=== PATIENT | male | born 1970 | race Caucasian/White ===

== ENCOUNTER → 2016-09-24 | Outpatient (CLI) | payer OTHER ==
--- NOTE | 2016-09-24 09:44 | REP ---
Right ankle four views : There is no fracture or dislocation. Mineralization and joint spaces are normal. There are no calcifications or foreign bodies. Impression: Negative right ankle . Signed by Lalo Thomson MD 09/24/2016 09:35 A
[2016-09-24 12:38] LABS: BASO % 0.5 % (0.0-1.0); EOS # 0.4 K/mm3 (0.0-0.50); LARGE UNSTAINED CELL # 0.2 K/mm3 (0.0-0.4); LARGE UNSTAINED CELL % 3.2 % (0.0-4.0); LYMPH # 2.1 K/mm3 (1.5-4.5); LYMPH % 33.7 % (24.0-44.0); MEAN CORPUSCULAR HEMOGLOBIN 31.7 pg (27.0-33.0); MEAN CORPUSCULAR HGB CONC 35.4 g/dl (32.0-36.5); MEAN CORPUSCULAR VOLUME 89.6 fl (80.0-96.0); MONO # 0.5 K/mm3 (0.0-0.8); MONO % 9.1 % (0.0-5.0); NEUTROPHILS # 2.8 K/mm3 (1.8-7.7); NEUTROPHILS % 47.5 % (36.0-66.0); PLATELET COUNT, AUTOMATED 186 k/mm3 (150-450); WHITE BLOOD COUNT 5.8 K/mm3 (4.0-10.0)
[2016-09-24 13:23] LABS: ALBUMIN 3.9 GM/DL (3.2-5.2); ALBUMIN/GLOBULIN RATIO 1.08 (1.00-1.93); ALKALINE PHOSPHATASE 112 U/L (45-117); ALT/SGPT 18 U/L (12-78); ANION GAP 9 MEQ/L (8-16); AST/SGOT 11 U/L (15-37); BILIRUBIN,TOTAL 0.6 MG/DL (0.2-1.0); BLOOD UREA NITROGEN 11 MG/DL (7-18); CALCIUM LEVEL 9.1 MG/DL (8.5-10.1); CARBON DIOXIDE LEVEL 29 MEQ/L (21-32); CHLORIDE LEVEL 103 MEQ/L (98-107); CREATININE FOR GFR 0.92 MG/DL (0.70-1.30); GLOMERULAR FILTRATION RATE > 60.0 (>60); GLUCOSE, FASTING 101 MG/DL (70-105); POTASSIUM SERUM 4.4 MEQ/L (3.5-5.1); SODIUM LEVEL 141 MEQ/L (136-145); TOTAL PROTEIN 7.5 GM/DL (6.4-8.2); URIC ACID 6.5 MG/DL (3.5-7.2)
== END ==
LOC: M ADAMS 08:57
PROVIDERS: ATTEND Physician Assistant
DX: M25.571 Pain in right ankle and joints of right foot (principal)

== ENCOUNTER → 2018-02-21 | Outpatient (CLI) | payer OTHER ==
--- NOTE | 2018-02-21 19:24 | REP ---
Chest two views HISTORY: Cough Comparison: None Patchy density is present in the left lower lobe consistent with atelectasis or infiltrate. The right lung is clear. A small left pleural effusion is present. The heart is normal in size. The pulmonary vasculature is normal in appearance. The bony structure is intact. IMPRESSION: 1. Left lower lobe atelectasis or infiltrate. 2. Small left pleural effusion. Electronically Signed by Jatinder Parkinson MD 02/21/2018 07:15 P
== END ==
LOC: M WUC 18:52
PROVIDERS: ATTEND Physician Assistant
DX: J98.4 Other disorders of lung (principal); J90 Pleural effusion, not elsewhere classified; R05 Cough; R50.9 Fever, unspecified

== ENCOUNTER → 2018-02-22 | Outpatient (CLI) | payer OTHER ==
[2018-02-22 19:33] LABS: BASO % 0.4 % (0.0-1.0); EOS # 0.3 10^3/uL (0.0-0.50); EOS % 3.5 % (0.0-3.0); HEMATOCRIT 41.8 % (42.0-52.0); HEMOGLOBIN 14.3 g/dl (13.5-17.5); LYMPH # 2.2 10^3/uL (1.5-4.5); LYMPH % 27.6 % (24.0-44.0); MEAN CORPUSCULAR HEMOGLOBIN 28.7 pg (27.0-33.0); MEAN CORPUSCULAR HGB CONC 34.2 g/dl (32.0-36.5); MEAN CORPUSCULAR VOLUME 83.9 fl (80.0-96.0); MONO # 0.9 10^3/uL (0.0-0.8); MONO % 11.8 % (0.0-5.0); NEUTROPHILS # 4.5 10^3/uL (1.8-7.7); NEUTROPHILS % 56.4 % (36.0-66.0); PLATELET COUNT, AUTOMATED 266 10^3/uL (150-450); RED BLOOD COUNT 4.98 10^6/uL (4.30-6.10)
[2018-02-22 20:00] LABS: ALBUMIN 3.3 GM/DL (3.2-5.2); ALT/SGPT 12 U/L (12-78); BILIRUBIN,TOTAL 0.6 MG/DL (0.2-1.0); BLOOD UREA NITROGEN 15 MG/DL (7-18); CALCIUM LEVEL 8.6 MG/DL (8.5-10.1); CARBON DIOXIDE LEVEL 28 MEQ/L (21-32); CHLORIDE LEVEL 99 MEQ/L (98-107); CREATININE FOR GFR 1.05 MG/DL (0.70-1.30); GLOMERULAR FILTRATION RATE > 60.0 (>60); GLUCOSE, FASTING 108 MG/DL (70-100); POTASSIUM SERUM 3.8 MEQ/L (3.5-5.1); SODIUM LEVEL 137 MEQ/L (136-145); TOTAL PROTEIN 7.4 GM/DL (6.4-8.2)
== END ==
LOC: M WUC 18:02
PROVIDERS: ATTEND Physician Assistant
DX: J18.9 Pneumonia, unspecified organism (principal)

== ENCOUNTER → 2018-11-20 | Outpatient (CLI) | payer OTHER ==
--- NOTE | 2018-11-20 13:28 | REP ---
REASON: Pleurodynia. Seen only on the lateral view in the inferior lung farrell, there is the suggestion of a patchy opacity. This was present on the prior exam of 02/21/2018, which is the only prior for comparison, however, there is marked improvement seen today. In addition, there is slight left CP angle blunting. The lung farrell are otherwise clear. The heart is not enlarged. The osseous structures are normal. IMPRESSION: Chronic scarring versus left lower lobe changes, possibly reflecting pneumonia. This should be correlated clinically with appropriate followup. Electronically Signed by Cezar Evans DO 11/20/2018 02:21 P
== END ==
LOC: M WUC 11:17
PROVIDERS: ATTEND Physician Assistant
DX: R91.8 Other nonspecific abnormal finding of lung field (principal)

== ENCOUNTER 2018-12-19 09:04 | Inpatient (IN) | payer OTHER ==
[~2018-12-19] VITALS: Ht 182.9 cm; Wt 95.4 kg
[2018-12-19] VITALS (12 sets, daily range): BP systolic 134–160; BP diastolic 85–102
[2018-12-19 09:37] LABS: BASO % 0.5 % (0.0-1.0); EOS # 0.4 10^3/uL (0.0-0.5); EOS % 5.2 % (0.0-3.0); HEMATOCRIT 46.6 % (42.0-52.0); HEMOGLOBIN 16.2 g/dl (13.5-17.5); LYMPH # 1.6 10^3/uL (1.5-5.0); MEAN CORPUSCULAR HEMOGLOBIN 30.3 pg (27.0-33.0); MEAN CORPUSCULAR HGB CONC 34.8 g/dl (32.0-36.5); MEAN CORPUSCULAR VOLUME 87.3 fl (80.0-96.0); MONO # 0.9 10^3/uL (0.0-0.8); MONO % 11.8 % (0.0-5.0); NEUTROPHILS # 4.5 10^3/uL (1.5-8.5); PLATELET COUNT, AUTOMATED 225 10^3/uL (150-450); RED BLOOD COUNT 5.34 10^6/uL (4.30-6.10); WHITE BLOOD COUNT 7.4 10^3/uL (4.0-10.0)
[2018-12-19] MEDS ORDERED: LABETALOL 100 MG TAB PO ONE (09:45)
[2018-12-19] MEDS ORDERED: FUROSEMIDE 40 MG/4 ML VIAL (J1940) IV ONE (10:00)
[2018-12-19 10:04] LABS: BLOOD UREA NITROGEN 16 MG/DL (7-18); CALCIUM LEVEL 8.8 MG/DL (8.5-10.1); CARBON DIOXIDE LEVEL 25 MEQ/L (21-32); CHLORIDE LEVEL 105 MEQ/L (98-107); CK-MB VALUE MASS 1.2 NG/ML (<3.6); CPK CREATINE PHOSPHOKINASE 66 U/L (39-308); CREATININE FOR GFR 1.18 MG/DL (0.70-1.30); GLOMERULAR FILTRATION RATE > 60.0 (>60); GLUCOSE, FASTING 113 MG/DL (70-100); MB/CK RELATIVE INDEX 1.82 (< OR =4); POTASSIUM SERUM 3.7 MEQ/L (3.5-5.1); SODIUM LEVEL 138 MEQ/L (136-145); TROPONIN I 0.05 NG/ML (< 0.10)
[2018-12-19] MEDS: LABETALOL HCL 100 MG/20 ML VIAL IV PRN ×4 (10:07→11:17)
--- NOTE | 2018-12-19 10:07 | REP ---
PORTABLE CHEST X-RAY: Single view. HISTORY: Cardiomyopathy. COMPARISON STUDY: November 20, 2018. FINDINGS: Moderate cardiac enlargement is observed. Cardiothoracic ratio measures 55.6%. The thoracic aorta somewhat tortuous as before. Pulmonary vasculature is cephalized. Today's study demonstrates a mild pattern of diffuse interstitial edema. No pleural effusion is seen. IMPRESSION: Mild diffuse interstitial edema. Moderate cardiomegaly again noted. No acute infiltrate. Electronically Signed by Chong Rucker MD 12/19/2018 01:49 P
--- NOTE | 2018-12-19 10:23 | REP ---
NONCONTRAST BRAIN CT: HISTORY: Hypertensive urgency. No comparison brain imaging. CT FINDINGS: Preliminary digital hockey scout radiograph demonstrates that the patient is edentulous. Bony calvarium is intact on axial CT images. Visualized paranasal sinuses are clear. No intraorbital abnormality is appreciated. On soft tissue window settings, lateral, third, and fourth ventricles are normal in size and position. Yates-white differentiation pattern is normal above and below the tentorium. There is no evidence of intracranial hemorrhage. No mass, infarct, extra-axial fluid collection, or midline shift is seen. IMPRESSION: Negative noncontrast head CT. Electronically Signed by Chong Rucker MD 12/19/2018 01:50 P
[2018-12-19] MEDS ORDERED: ASPIRIN 81 MG CHEW TABLET PO ONE (12:00)
[2018-12-19] MEDS ORDERED: LABETALOL HCL 100 MG/20 ML VIAL IV SCH (12:00)
[2018-12-19] MEDS: LISINOPRIL 20 MG TAB PO SCH (12:29)
--- NOTE | 2018-12-19 12:44 | HPEPDOC ---
General Date of Admission Dec 19, 2018 at 11:51 Date of Service: Dec 19, 2018 Attending Physician: WIL LEWIS DO Chief Complaint The patient is a 48-year-old male admitted with a reason for visit of Hypertensive Emergency. Source: Patient Exam Limitations: No limitations Timing/Duration: Day(s) Severity: Severe Associated Symptoms: Denies Symptoms History of Present Illness Patient is 48 years old male without significant past medical history presented hospital with hypertensive emergency. Patient stated that 4 weeks ago he was noticed to have blood pressure around 180/100 in urgent care. He was recommended to have appointment with PCP. In the PCP office today his blood pressure was found to 220/100. Patient was sent to emergency. In emergency room patient was found to have blood pressure 200/106, Bnp 5800, EKG shows LVH and sinus rhythm, troponin negative. Patient denies any other symptoms fever, chills, nausea, vomiting, diarrhea, palpitations, shortness of breath Home Medications No Active Prescriptions or Reported Meds Allergies Coded Allergies: No Known Allergies (Unverified , 12/19/18) Past Medical History Medical History Hypertension Family History Father is alcoholic Social History * Smoker: current smoker, greater than 1 pack/day Alcohol: Denies Drugs: denies A-FIB/CHADSVASC A-FIB History Current/History of A-Fib/PAF?: No Current PO Anticoag Therapy: No Review of Systems Constitutional: Denies: Chills, Fever Eyes: Denies: Pain, Vision change ENT: Denies: Head Aches, Ear Pain Skin: Denies: Rash, Lesions Pulmonary: Denies: Dyspnea, Cough Cardiovascular: Denies: Chest Pain, Palpitations Gastrointestinal: Denies: Nausea, Vomiting Genitourinary: Denies: Dysuria, Frequency Hematologic: Denies: Bruising, Bleeding Excessively Endocrine: Denies: Polydipsia, Polyphagia Musculoskeletal: Denies: Neck Pain, Back Pain Neurological: Denies: Weakness, Numbness Psych: Denies: Mood Normal, Anxiety Physical Examination General Exam: Positive: Alert, Cooperative Eye Exam: Positive: PERRLA ENT Exam: Positive: Atraumatic Neck Exam: Positive: Supple; Negative: JVD Chest Exam: Positive: Clear to auscultation Heart Exam: Positive: Tachycardic Telemetry: Positive: Sinus Abdomen Exam: Positive: Normal bowel sounds Extremity Exam: Negative: Clubbing, Cyanosis Skin Exam: Negative: Nl turgor and temperature Neuro Exam: Positive: Normal Gait, Strength at 5/5 X4 ext Psych Exam: Positive: Mental status NL Vital Signs Vital Signs Date Time Temp Pulse Resp B/P (MAP) Pulse Ox O2 Delivery O2 Flow Rate FiO2 12/19/18 11:17 82 174/118 12/19/18 10:50 95 12/19/18 09:12 98.2 20 Room Air Laboratory Data Labs 24H Laboratory Tests 2 12/19/18 09:20: XA-Lry-A-Type Natriuretic Peptide 5881H, Thyroid Stimulating Hormone (TSH) 3.000 12/19/18 09:24: Immature Granulocyte % (Auto) 0.5, White Blood Count 7.4, Red Blood Count 5.34, Hemoglobin 16.2, Hematocrit 46.6, Mean Corpuscular Volume 87.3, Mean Corpuscular Hemoglobin 30.3, Mean Corpuscular Hemoglobin Concent 34.8, Red Cell Distribution Width 13.5, Platelet Count 225, Neutrophils (%) (Auto) 61.0, Lymphocytes (%) (Auto) 21.0L, Monocytes (%) (Auto) 11.8H, Eosinophils (%) (Auto) 5.2H, Basophils (%) (Auto) 0.5, Neutrophils # (Auto) 4.5, Lymphocytes # (Auto) 1.6, Monocytes # (Auto) 0.9H, Eosinophils # (Auto) 0.4, Basophils # (Auto) 0.0, Nucleated Red Blood Cells % (auto) 0.0, Anion Gap 8, Glomerular Filtration Rate > 60.0, Blood Urea Nitrogen 16, Creatinine 1.18, Sodium Level 138, Potassium Level 3.7, Chloride Level 105, Carbon Dioxide Level 25, Calcium Level 8.8, Total Creatine Kinase 66, Creatine Kinase MB 1.2, Creatine Kinase MB Relative Index 1.82, Troponin I 0.05 CBC/BMP Laboratory Tests 12/19/18 09:24 Red Blood Count 5.34, Mean Corpuscular Volume 87.3, Mean Corpuscular Hemoglobin 30.3, Mean Corpuscular Hemoglobin Concent 34.8, Red Cell Distribution Width 13.5, Neutrophils (%) (Auto) 61.0, Lymphocytes (%) (Auto) 21.0 L, Monocytes (%) (Auto) 11.8 H, Eosinophils (%) (Auto) 5.2 H, Basophils (%) (Auto) 0.5, Neutrophils # (Auto) 4.5, Lymphocytes # (Auto) 1.6, Monocytes # (Auto) 0.9 H, Eosinophils # (Auto) 0.4, Basophils # (Auto) 0.0, Calcium Level 8.8, Total Cre atine Kinase 66 Assessment/Plan Patient is 48 years old male without significant past medical history presented hospital with hypertensive emergency. Patient stated that 4 weeks ago he was noticed to have blood pressure around 180/100 in urgent care. He was recommended to have appointment with PCP. In the PCP office today his blood pressure was found to 220/100. Patient was sent to emergency. In emergency room patient was found to have blood pressure 200/106, Bnp 5800, EKG shows LVH and sinus rhythm, troponin negative. Problems (1) Hypertensive emergency Status: Acute Problem Text: Patient did not have a PCP before and he didn't take any medication presumably for long-standing hypertension Echo Labetalol drip to keep blood pressure around 170s for the next 8-[address] Klein recommended to add lisinopril 20 mg by mouth Lipid profile Aspirin 81 (2) CHF (congestive heart failure) Status: Acute Problem Text: Most likely secondary to long-standing hypertension I's and O's BNP around 5800 EKG showed LVH Lasix IV Plan / VTE VTE Prophylaxis Ordered?: Yes WIL LEWIS DO Dec 19, 2018 12:44
[2018-12-19 13:06] LABS: ALBUMIN 3.5 GM/DL (3.2-5.2); ALT/SGPT 14 U/L (12-78); BILIRUBIN,TOTAL 0.6 MG/DL (0.2-1.0); BLOOD UREA NITROGEN 16 MG/DL (7-18); CALCIUM LEVEL 8.6 MG/DL (8.5-10.1); CARBON DIOXIDE LEVEL 29 MEQ/L (21-32); CHLORIDE LEVEL 103 MEQ/L (98-107); CHOLESTEROL LEVEL 242 MG/DL (<200); CHOLESTEROL RISK RATIO 6.722 (<5); CREATININE FOR GFR 1.17 MG/DL (0.70-1.30); GLOMERULAR FILTRATION RATE > 60.0 (>60); GLUCOSE, FASTING 118 MG/DL (70-100); HDL CHOLESTEROL 36 MG/DL (>40); LDL CHOLESTEROL 183 MG/DL (<100); MAGNESIUM LEVEL 1.7 MG/DL (1.8-2.4); NON-HDL-C 206 MG/DL; PHOSPHORUS LEVEL 2.9 MG/DL (2.5-4.9); SODIUM LEVEL 139 MEQ/L (136-145); TOTAL PROTEIN 7.1 GM/DL (6.4-8.2); TRIGLYCERIDES LEVEL 115 MG/DL (<150)
[2018-12-19] MEDS: MAGNESIUM CHLORIDE 64 MG TABCR (SLO MAG) PO SCH (15:28)
[2018-12-19] MEDS ORDERED: FUROSEMIDE 20 MG TAB PO SCH (17:00)
[2018-12-19] MEDS ORDERED: LABETALOL HCL 100 MG/20 ML VIAL IV PRN (17:15)
[2018-12-19 19:06] LABS: CALCIUM LEVEL 8.8 MG/DL (8.5-10.1); CREATININE FOR GFR 1.57 MG/DL (0.70-1.30); GLOMERULAR FILTRATION RATE 50.4 (>60); POTASSIUM SERUM 3.9 MEQ/L (3.5-5.1)
[2018-12-19] MEDS: amLODIPine 5 MG TAB PO SCH (20:30)
[2018-12-19] MEDS: HEPARIN SOD (PORCINE) 5000 UNITS/ML VIAL SQ SCH (20:33)
[2018-12-19] MEDS ORDERED: ATORVASTATIN 20 MG TAB PO SCH (21:00)
[2018-12-20] VITALS (9 sets, daily range): BP systolic 103–141; BP diastolic 55–94
[2018-12-20 00:59] LABS: CALCIUM LEVEL 8.5 MG/DL (8.5-10.1); CREATININE FOR GFR 1.51 MG/DL (0.70-1.30); GLOMERULAR FILTRATION RATE 52.8 (>60); POTASSIUM SERUM 3.7 MEQ/L (3.5-5.1)
[2018-12-20 04:52] LABS: BASO # 0.1 10^3/uL (0.0-0.2); BASO % 0.7 % (0.0-1.0); EOS # 0.4 10^3/uL (0.0-0.5); EOS % 5.4 % (0.0-3.0); HEMATOCRIT 43.2 % (42.0-52.0); HEMOGLOBIN 14.5 g/dl (13.5-17.5); LYMPH # 1.8 10^3/uL (1.5-5.0); LYMPH % 25.6 % (24.0-44.0); MEAN CORPUSCULAR HEMOGLOBIN 29.7 pg (27.0-33.0); MEAN CORPUSCULAR HGB CONC 33.6 g/dl (32.0-36.5); MEAN CORPUSCULAR VOLUME 88.5 fl (80.0-96.0); MONO # 0.9 10^3/uL (0.0-0.8); MONO % 12.5 % (0.0-5.0); NEUTROPHILS # 3.9 10^3/uL (1.5-8.5); NEUTROPHILS % 55.4 % (36.0-66.0); PLATELET COUNT, AUTOMATED 221 10^3/uL (150-450); RED BLOOD COUNT 4.88 10^6/uL (4.30-6.10); WHITE BLOOD COUNT 7.1 10^3/uL (4.0-10.0)
[2018-12-20 05:17] LABS: CALCIUM LEVEL 8.6 MG/DL (8.5-10.1); CREATININE FOR GFR 1.59 MG/DL (0.70-1.30); GLOMERULAR FILTRATION RATE 49.7 (>60); MAGNESIUM LEVEL 1.8 MG/DL (1.8-2.4); POTASSIUM SERUM 3.7 MEQ/L (3.5-5.1)
--- NOTE | 2018-12-20 07:31 | ECGEPIP ---
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
--- NOTE | 2018-12-20 08:04 | IPN ---
DATE: 12/20/2018 Mr. Kruger had an uneventful night. He was able to sleep without difficulty. His blood pressure throughout the night was well controlled and remains well controlled in the morning. He feels well and has no complaints. VITAL SIGNS: Blood pressure 139/82, heart rate in 60s to 80s, sinus rhythm. He is afebrile. Saturation 97% on room air. His fluid balance yesterday was about 900 negative, weight is 95.4 kg. He is alert and oriented and appropriate. JVP is not high. Lungs are clear. Heart exam reveals regular rhythm. He still has S4. I do not appreciate a murmur. Abdomen is soft, nontender. Extremities are free of edema. Neurologically intact. LABORATORY: Basic metabolic panel is normal with the exception of BUN 20 and creatinine 1.6, which is up from 1.17 yesterday and glucose is 102. CBC is normal. ASSESSMENT/PLAN: Mr. Kruger is a 48-year-old man without significant past medical history, but without any consistent medical care for years, who presents with hypertensive urgency. He received numerous medications yesterday and today his blood pressure is well-controlled, but he developed new renal insufficiency. At this point, I am going to discontinue his furosemide and will continue him only on lisinopril and amlodipine with labetalol as needed as a backup. I ordered a renal ultrasound, renal artery Doppler to make sure that he does not have renal artery stenosis. Provided his blood pressure stays good during the day, I think he can be discharged home later in a day. I will plan to see him in followup on an outpatient basis. I am still waiting for the echocardiogram report, which is not available, provided there are some dramatic abnormalities that certainly can change our plan.
[2018-12-20] MEDS: HEPARIN SOD (PORCINE) 5000 UNITS/ML VIAL SQ SCH (10:09)
[2018-12-20] MEDS: amLODIPine 5 MG TAB PO SCH (10:10)
[2018-12-20] MEDS: LISINOPRIL 20 MG TAB PO SCH (10:10)
[2018-12-20] MEDS: MAGNESIUM CHLORIDE 64 MG TABCR (SLO MAG) PO SCH (10:10)
--- NOTE | 2018-12-20 11:01 | REP ---
Urinary tract sonography with renal artery Doppler flow assessment: History: Renal insufficiency. Hypertensive urgency. Morphologic findings: Scanning at the bladder base shows smooth bladder mohan as visualized. Emptying ureteral jets are confirmed from the right ureter. There is no evidence of hydronephrosis on either side. Renal cortical echogenicity pattern is normal bilaterally. Right renal dimensions are 12.7 x 5.6 x 6.9 cm. The left kidney measures 12.1 x 5.6 x 6.0 cm. A 1.8 cm splenule is noted in the left upper quadrant adjacent to the splenic hilus. This is visible by CT study in April of 2013. No other morphologic abnormality. Renal artery Doppler assessment: Peak systolic flow velocity in the abdominal aorta at the level of the main renal arteries is normal measured 80.1 cm/sec. Peak systolic flow velocity in the left main renal artery is measured at 71.2 cm/sec and that in the right at 70.7 cm/sec. These values are normal. Renal to aortic flow velocity ratios are therefore normal at 0.9 bilaterally. Resistive indices and acceleration times are measured in the upper, mid, and lower pole intralobar arteries of each kidney and these values are normal bilaterally. Impression: There is no Doppler evidence to suggest renal artery stenosis. No hydronephrosis or other significant morphologic abnormality. Electronically Signed by Chong Rucker MD 12/20/2018 11:31 A
--- NOTE | 2018-12-20 11:40 | CR ---
DATE OF CONSULTATION: 12/19/2018 REFERRING PHYSICIAN: Dr. Chris Diallo INDICATION: Hypertensive urgency. HISTORY OF PRESENT ILLNESS: Mr. Kruger is a pleasant 48-year-old man who has no prior history of cardiovascular disease. He did not really have any consistent medical care for many years. He recalls that during his emergency room (ER) visit in January 2018, he was noted to have markedly elevated blood pressure but he did not seek any immediate medical attention after discharge from the emergency room. He eventually was seen in our facility about 5 or 6 weeks ago, again for very atypical left-sided chest discomfort and again was noted to have extremely high blood pressure. He was given brief course of steroids for presumptive diagnosis of pneumonia but this time he did follow up with a new primary care physician, that is Dr. Loyd, and when he was seen in his office today he was noted to have blood pressure 220 systolic and over 120 mmHg diastolic. He was then brought to the emergency room and eventually admitted. The patient is relatively asymptomatic. He specifically denies any chest pain, palpitations, headache, nausea or vomiting. He does admit to mild exertional dyspnea which has been chronic. Currently when I see him in the intensive care unit (ICU) his blood pressure is much better controlled and the last reading is 150/102, he feels well and has no acute complaints. PAST MEDICAL HISTORY: Negative. ALLERGIES: No allergies. PAST SURGICAL HISTORY: Negative. FAMILY HISTORY: His father is an alcoholic. He reports that virtually everybody in his family has high blood pressure and is a smoker. SOCIAL HISTORY: The patient is , the father of seven children. He works in a pet store. He smokes at least a pack and one-half a day, but on some days up to three packs, no significant alcohol use. REVIEW OF SYSTEMS: He denies any recent fever, chills, nausea, vomiting, diarrhea. No headaches. No back pain. He did have a few episodes of left-sided sharp chest discomfort as per history of present illness (HPI). There is no history of bleeding problems. No history of genitourinary problems. No history of peripheral edema. No history of neurological symptoms, weakness, alteration of vision. No history of psychiatric disease. PHYSICAL EXAMINATION: Mr. Kruger is a middle-aged man who appears approximately his age or maybe slightly older. VITAL SIGNS: On the last set of vital signs blood pressure 154/102, heart rate has been in 80s and 90s. He is afebrile. Saturation 94% on room air. Weight is documented 94.7 kg. Body mass index (BMI) is 28. GENERAL: He is alert and oriented appropriate. NECK: I do not appreciate jugular venous pulse (JVP) elevation. No carotid bruit. LUNGS: Lungs are clear with good air movement. HEART: Exam reveals somewhat displaced precordial impulse. He has positive S4 but not S3. I do not appreciate any murmur. ABDOMEN: Soft and nontender. No guarding. No hepatosplenomegaly. EXTREMITIES: Extremities are free of edema. Peripheral pulses are of good quality. NEUROLOGICAL: He is intact. He has no skin lesions. LABORATORY DATA: As of this morning basic metabolic panel was normal. Potassium was 3.7, glucose was 113 which is nonfasting, troponin was negative as well as CK, CK-MB and N-terminal pro BNP was 5800. TSH was 3.0. Lipid panel reveals cholesterol 242, LDL 183, HDL 36 and triglycerides 115. Renin and plasma metanephrine and normetanephrine were sent. Urinalysis was not ordered. IMAGING: Chest x-ray is suggestive maybe mild vascular distribution, but not overly impressive. ECG reveals the presence of sinus rhythm with left ventricular hypertrophy and secondary repolarization abnormalities. An echocardiogram was performed earlier today but the report is not available as yet. ASSESSMENT/PLAN: Mr. Kruger is a 48-year-old man who very likely has essential hypertension that has been present for years and never treated. He responded favorably to current administration of labetalol intravenous (IV) given every few minutes depending on blood pressure. He also received furosemide 20 mg twice a day and lisinopril 20 mg a day. It seems to me that it is probably not going to be that difficult to control his blood pressure. So far he responded quite favorably. I am going to add amlodipine to his regimen and hopefully tomorrow will be able to get him off the labetalol IV and possibly discharge him home only on a combination of diuretics, lisinopril and amlodipine. He certainly will need further evaluation depending on his clinical course not only for coronary artery disease but also for the further risk of vascular disease in general. I talked to him in the presence of his about the consequences of untreated hypertension and I want to believe that he will start treatment. The second issue is of smoking. He is a heavy smoker at least one pack and a half daily for years. He does not seem to be motivated to quit even though he will make some attempt. Once his blood pressure is controlled we can talk about Chantix on an outpatient basis. Finally his cholesterol is extremely elevated. I am going to start him on lipid lowering medications because he certainly is at high risk for coronary artery disease (CAD) based on a combination of extremely high blood pressure, smoking and high cholesterol.
[2018-12-20] MEDS ORDERED: AMLO5TAB6 PO (14:47)
[2018-12-20] MEDS ORDERED: ATOR40TA75 PO (14:47)
--- NOTE | 2018-12-20 15:07 | DS.PDOC ---
Discharge Summary General Date of Admission Dec 19, 2018 at 11:51 Date of Discharge 12/20/18 Discharge Summary PROCEDURES PERFORMED DURING STAY: ECHO Cardiogram ADMITTING DIAGNOSES: 1. HTN Urgency DISCHARGE DIAGNOSES: 1. HTN Urgency 2. HLD COMPLICATIONS/CHIEF COMPLAINT: Hypertensive Emergency. HISTORY OF PRESENT ILLNESS: "Patient is 48 years old male without significant past medical history presented hospital with hypertensive emergency. Patient stated that 4 weeks ago he was noticed to have blood pressure around 180/100 in urgent care. He was recommended to have appointment with PCP. In the PCP office today his blood pressure was found to 220/100. Patient was sent to emergency. In emergency room patient was found to have blood pressure 200/106, Bnp 5800, EKG shows LVH and sinus rhythm, troponin negative. Patient denies any other symptoms fever, chills, nausea, vomiting, diarrhea, palpitations, shortness of breath" HOSPITAL COURSE: Patient was started on PO antihypertensive medications with rapid improvement of symptoms and BP. He was seen by cardiology and had ECHO done. BP now in 140s systolic range and asymptomatic. Was started on Lisinopril, Amlodipine and also atorvastatin for hyperlipidemia. To continue with current regimen. f/u PMD and Cardiology as outpatient. F/u ECHO as well as remaining blood work including plasma TSH, renin, metanephrine. DISCHARGE MEDICATIONS: Please see below. ALLERGIES: Please see below. PHYSICAL EXAMINATION ON DISCHARGE: VITAL SIGNS: Please see below. General: No acute distress, Alert Eyes: Normal sclera, EOMI, KASIE HENT: Atraumatic, neck supple, moist mucous membranes Cardiovascular: Normal rate, normal rhythm. No murmurs appreciated. Pulmonary: Clear to auscultation b/l, no wheezing GI: Soft, nontender, nondistended Skin: Warm and dry Neuro: CN grossly intact. No focal deficits. Strengths equal b/l. Psych: oriented x 3 LABORATORY DATA: Please see below. IMAGING: Head CT- IMPRESSION: Negative noncontrast head CT. CXR- IMPRESSION: Mild diffuse interstitial edema. Moderate cardiomegaly again noted. No acute infiltrate. Renal US- Impression: There is no Doppler evidence to suggest renal artery stenosis. No hydronephrosis or other significant morphologic abnormality. ACTIVITY: [As tolerated]. DIET: Low sodium diet DISCHARGE PLAN: c/w Atorvastatin, Lisinopril and amlodipine f/u PMD and cardiology DISPOSITION: Home. DISCHARGE INSTRUCTIONS: c/w Atorvastatin, Lisinopril and amlodipine f/u PMD and cardiology ITEMS TO FOLLOWUP ON ON OUTPATIENT: ECHO TSH Renal metanephrine/normetanephrine DISCHARGE CONDITION: [Stable]. TIME SPENT ON DISCHARGE: 32 minutes. Vital Signs/I&Os Vital Signs Date Time Temp Pulse Resp B/P (MAP) Pulse Ox O2 Delivery O2 Flow Rate FiO2 12/20/18 12:00 97.9 70 18 141/87 (105) 98 12/19/18 09:12 Room Air I&O- Last 24 Hours up to 6 AM 12/20/18 06:00 Intake Total 1150 ml Output Total 1900 ml Balance -750 ml Laboratory Data Labs 24H Laboratory Tests 2 12/19/18 18:28: Anion Gap 7L, Glomerular Filtration Rate 50.4L, Blood Urea Nitrogen 19H, Creatinine 1.57H, Sodium Level 138, Potassium Level 3.9, Chloride Level 103, Carbon Dioxide Level 28, Calcium Level 8.8 12/20/18 00:15: Anion Gap 8, Glomerular Filtration Rate 52.8L, Blood Urea Nitrogen 20H, Creatinine 1.51H, Sodium Level 140, Potassium Level 3.7, Chloride Level 103, Carbon Dioxide Level 29, Calcium Level 8.5 12/20/18 04:29: Anion Gap 4L, Glomerular Filtration Rate 49.7L, Blood Urea Nitrogen 20H, Creatinine 1.59H, Sodium Level 139, Potassium Level 3.7, Chloride Level 103, Carbon Dioxide Level 32, Calcium Level 8.6, Immature Granulocyte % (Auto) 0.4, White Blood Count 7.1, Red Blood Count 4.88, Hemoglobin 14.5, Hematocrit 43.2, Mean Corpuscular Volume 88.5, Mean Corpuscular Hemoglobin 29.7, Mean Corpuscular Hemoglobin Concent 33.6, Red Cell Distribution Width 13.8, Platelet Count 221, Neutrophils (%) (Auto) 55.4, Lymphocytes (%) (Auto) 25.6, Monocytes (%) (Auto) 12.5H, Eosinophils (%) (Auto) 5.4H, Basophils (%) (Auto) 0.7, Neutrophils # (Auto) 3.9, Lymphocytes # (Auto) 1.8, Monocytes # (Auto) 0.9H, Eosinophils # (Auto) 0.4, Basophils # (Auto) 0.1, Nucleated Red Blood Cells % (auto) 0.0, Magnesium Level 1.8 CBC/BMP Laboratory Tests 12/19/18 18:28 Calcium Level 8.8 12/20/18 00:15 Calcium Level 8.5 12/20/18 04:29 Calcium Level 8.6, Red Blood Count 4.88, Mean Corpuscular Volume 88.5, Mean Corpuscular Hemoglobin 29.7, Mean Corpuscular Hemoglobin Concent 33.6, Red Cell Distribution Width 13.8, Neutrophils (%) (Auto) 55.4, Lymphocytes (%) (Auto) 25.6, Monocytes (%) (Auto) 12.5 H, Eosinophils (%) (Auto) 5.4 H, Basophils (%) (Auto) 0.7, Neutrophils # (Auto) 3.9, Lymphocytes # (Auto) 1.8, Monocytes # (Auto) 0.9 H, Eosinophils # (Auto) 0.4, Basophils # (Auto) 0.1 Discharge Medications Scheduled Amlodipine Besylate (Amlodipine Besylate) 5 Mg Tablet, 5 MG PO DAILY Atorvastatin Calcium (Atorvastatin Calcium) 40 Mg Tablet, 40 MG PO DAILY Allergies Coded Allergies: No Known Allergies (Unverified , 12/19/18) JUANY COVARRUBIAS MD Dec 20, 2018 15:07
[2018-12-20] MEDS ORDERED: LISI-538 PO (15:26)
--- NOTE | 2018-12-20 20:23 | ECHO ---
DATE OF PROCEDURE: 12/19/2018 REFERRING PHYSICIAN: Dr. Diallo INDICATION: Cardiomegaly. Height 183 cm, weight 101 kg. DIMENSIONS: IVS: 1.4 LV: 5.9 LVPW: 1.4 LA: 5.2 Aorta: 2.8 IVC: 1.6 Mitral E wave velocity: 101 A wave: 52 E prime septal: 5.6 E prime lateral: 5.6 FINDINGS: The study is of acceptable technical quality. The patient is in sinus rhythm. Left ventricle is borderline dilated. Mild to moderate left ventricular hypertrophy is present. There is global hypokinesis. I estimate overall ejection fraction (EF) around 40%. Right ventricle is normal size and systolic function. Left atrium is severely enlarged. Right atrium is normal. Aortic valve is mildly sclerotic but has three cusps and preserved mobility. Mitral, tricuspid and pulmonic valves appear normal. No pericardial effusion is noted. Inferior vena cava is normal size. Aortic root and aortic arch appear normal. Abdominal aorta was not well seen. Doppler interrogation reveals no aortic stenosis or insufficiency. There is approximately [id number] mitral insufficiency. Trace tricuspid insufficiency is seen. Calculated pulmonary artery pressure is in 30s based on poor quality TR jet. Pulmonic valve is functionally competent. Mitral inflow pattern and tissue Doppler imaging of mitral annulus revealed grade 2 diastolic dysfunction, suggestive of elevated left ventricular end-diastolic pressure (LVEDP). CONCLUSIONS: 1. Study is of good technical quality. 2. Mildly dilated left ventricle with mild left ventricular hypertrophy (LVH) and approximately moderate left ventricular systolic dysfunction. Grade 2 diastolic dysfunction. 3. Mild to moderate mitral insufficiency. 4. Normal central venous pressure. 5. At least mild pulmonary hypertension. COMMENT: Subacute bacterial endocarditis (SBE) prophylaxis is not recommended. Study is most consistent with nonischemic cardiomyopathy.
== END 2018-12-20 16:00 | disposition home or self-care (01) | DRG 199 ==
LOC: M ED 09:04 → EDBD 09:04 → M ED INP 11:51 → M ICU 14:09
PROVIDERS: ADMIT Internal Medicine; ATTEND Student in an Organized Health Care Education/Training Program
DX: I16.0 Hypertensive urgency (principal); I50.9 Heart failure, unspecified; E78.5 Hyperlipidemia, unspecified; F17.210 Nicotine dependence, cigarettes, uncomplicated; N28.9 Disorder of kidney and ureter, unspecified; I11.0 Hypertensive heart disease with heart failure

== ENCOUNTER → 2019-02-13 | Outpatient (REF) | payer OTHER ==
[~2019-02-13] MED LIST: AMLO5TAB6 PO; ATOR40TA75 PO; LISI-538 PO
[2019-02-13 11:54] LABS: BASO # 0.1 10^3/uL (0.0-0.2); BASO % 0.8 % (0.0-1.0); EOS # 0.4 10^3/uL (0.0-0.5); EOS % 6.4 % (0.0-3.0); HEMATOCRIT 45.3 % (42.0-52.0); HEMOGLOBIN 14.9 g/dl (13.5-17.5); LYMPH # 1.6 10^3/uL (1.5-5.0); LYMPH % 26.4 % (24.0-44.0); MEAN CORPUSCULAR HEMOGLOBIN 29.5 pg (27.0-33.0); MEAN CORPUSCULAR HGB CONC 32.9 g/dl (32.0-36.5); MEAN CORPUSCULAR VOLUME 89.7 fl (80.0-96.0); MONO # 0.8 10^3/uL (0.0-0.8); MONO % 12.7 % (0.0-5.0); NEUTROPHILS # 3.2 10^3/uL (1.5-8.5); NEUTROPHILS % 53.4 % (36.0-66.0); PLATELET COUNT, AUTOMATED 196 10^3/uL (150-450); RED BLOOD COUNT 5.05 10^6/uL (4.30-6.10); WHITE BLOOD COUNT 6.1 10^3/uL (4.0-10.0)
[2019-02-13 12:10] LABS: ALBUMIN 3.6 GM/DL (3.2-5.2); BILIRUBIN,TOTAL 0.3 MG/DL (0.2-1.0); CALCIUM LEVEL 8.6 MG/DL (8.5-10.1); CHOLESTEROL RISK RATIO 3.448 (<5); CREATININE FOR GFR 1.41 MG/DL (0.70-1.30); GLOMERULAR FILTRATION RATE 57.1 (>60); POTASSIUM SERUM 4.5 MEQ/L (3.5-5.1); THYROID STIMULATING HORMONE 3.63 uIU/ML (0.358-3.740); TOTAL PROTEIN 6.8 GM/DL (6.4-8.2)
[2019-02-13 13:15] LABS: TOTAL 25(OH) VITAMIN D 16.6 NG/ML (30.0-100.0)
== END ==
LOC: M LAB REF 11:24
PROVIDERS: ATTEND Nurse Practitioner Family
DX: Z00.01 Encounter for general adult medical examination with abnormal findings (principal)

== ENCOUNTER → 2019-05-17 | Outpatient (REF) | payer OTHER ==
[2019-05-17 13:53] LABS: BASO # 0.1 10^3/uL (0.0-0.2); BASO % 0.7 % (0.0-1.0); EOS # 0.3 10^3/uL (0.0-0.5); EOS % 3.4 % (0.0-3.0); HEMATOCRIT 45.5 % (42.0-52.0); HEMOGLOBIN 15.4 g/dl (13.5-17.5); LYMPH # 2.5 10^3/uL (1.5-5.0); LYMPH % 25.8 % (24.0-44.0); MEAN CORPUSCULAR HEMOGLOBIN 30.7 pg (27.0-33.0); MEAN CORPUSCULAR HGB CONC 33.8 g/dl (32.0-36.5); MEAN CORPUSCULAR VOLUME 90.6 fl (80.0-96.0); NEUTROPHILS # 5.7 10^3/uL (1.5-8.5); NEUTROPHILS % 59.5 % (36.0-66.0); PLATELET COUNT, AUTOMATED 296 10^3/uL (150-450); RED BLOOD COUNT 5.02 10^6/uL (4.30-6.10); WHITE BLOOD COUNT 9.6 10^3/uL (4.0-10.0)
[2019-05-17 14:04] LABS: ALBUMIN 3.4 GM/DL (3.2-5.2); BILIRUBIN,TOTAL 0.5 MG/DL (0.2-1.0); CALCIUM LEVEL 9.3 MG/DL (8.5-10.1); CHOLESTEROL RISK RATIO 4.333 (<5); CREATININE FOR GFR 1.53 MG/DL (0.70-1.30); GLOMERULAR FILTRATION RATE 51.8 (>60); THYROID STIMULATING HORMONE 3.41 uIU/ML (0.358-3.740); TOTAL 25(OH) VITAMIN D 15.2 NG/ML (30.0-100.0); TOTAL PROTEIN 7.2 GM/DL (6.4-8.2)
[2019-05-17 15:29] LABS: HEMOGLOBIN A1c 5.9 %
== END ==
LOC: M LAB REF 13:04
PROVIDERS: ATTEND Family Medicine
DX: R73.03 Prediabetes (principal)

== ENCOUNTER → 2019-11-07 | Outpatient (REF) | payer OTHER ==
[~2019-11-07] MED LIST changes: +AMLO1TAB24 PO; -AMLO5TAB6 PO
[2019-11-07 13:55] LABS: BASO # 0.1 10^3/uL (0.0-0.2); BASO % 0.7 % (0.0-1.0); EOS # 0.3 10^3/uL (0.0-0.5); EOS % 4.4 % (0.0-3.0); HEMATOCRIT 47.5 % (42.0-52.0); HEMOGLOBIN 15.8 g/dl (13.5-17.5); LYMPH # 1.8 10^3/uL (1.5-5.0); LYMPH % 25.3 % (24.0-44.0); MEAN CORPUSCULAR HEMOGLOBIN 30.4 pg (27.0-33.0); MEAN CORPUSCULAR HGB CONC 33.3 g/dl (32.0-36.5); MEAN CORPUSCULAR VOLUME 91.3 fl (80.0-96.0); MONO # 0.7 10^3/uL (0.0-0.8); MONO % 10.2 % (0.0-5.0); NEUTROPHILS # 4.2 10^3/uL (1.5-8.5); NEUTROPHILS % 59.1 % (36.0-66.0); PLATELET COUNT, AUTOMATED 204 10^3/uL (150-450); WHITE BLOOD COUNT 7.1 10^3/uL (4.0-10.0)
[2019-11-07 14:11] LABS: ALBUMIN 3.6 GM/DL (3.2-5.2); ALT/SGPT 28 U/L (12-78); BILIRUBIN,TOTAL 0.4 MG/DL (0.2-1.0); BLOOD UREA NITROGEN 12 MG/DL (7-18); CALCIUM LEVEL 8.3 MG/DL (8.5-10.1); CARBON DIOXIDE LEVEL 26 MEQ/L (21-32); CHLORIDE LEVEL 108 MEQ/L (98-107); CHOLESTEROL LEVEL 110 MG/DL (<200); CHOLESTEROL RISK RATIO 3.666 (<5); CREATININE FOR GFR 1.27 MG/DL (0.70-1.30); GLOMERULAR FILTRATION RATE > 60.0 (>60); GLUCOSE, FASTING 136 MG/DL (70-100); HDL CHOLESTEROL 30 MG/DL (>40); LDL CHOLESTEROL 65 MG/DL (<100); NON-HDL-C 80 MG/DL; POTASSIUM SERUM 4.1 MEQ/L (3.5-5.1); SODIUM LEVEL 141 MEQ/L (136-145); TOTAL 25(OH) VITAMIN D 23.4 NG/ML (30.0-100.0); TOTAL PROTEIN 6.8 GM/DL (6.4-8.2); TRIGLYCERIDES LEVEL 76 MG/DL (<150)
[2019-11-07 15:21] LABS: HEMOGLOBIN A1c 5.6 %
== END ==
LOC: M LAB REF 11:30
PROVIDERS: ATTEND Family Medicine
DX: I10 Essential (primary) hypertension (principal)

== ENCOUNTER → 2020-06-24 | Outpatient (REF) | payer OTHER ==
[~2020-06-24] MED LIST changes: -LISI-538 PO; +LISI20TA33 PO
[2020-06-24 12:14] LABS: HEMATOCRIT 47.1 % (42.0-52.0); HEMOGLOBIN 15.5 g/dl (13.5-17.5); MEAN CORPUSCULAR HEMOGLOBIN 30.6 pg (27.0-33.0); MEAN CORPUSCULAR HGB CONC 32.9 g/dl (32.0-36.5); MEAN CORPUSCULAR VOLUME 93.1 fl (80.0-96.0); PLATELET COUNT, AUTOMATED 206 10^3/uL (150-450); RED BLOOD COUNT 5.06 10^6/uL (4.30-6.10); WHITE BLOOD COUNT 8.3 10^3/uL (4.0-10.0)
[2020-06-24 12:15] LABS: BASO # 0.1 10^3/uL (0.0-0.2); BASO % 0.6 % (0.0-1.0); EOS # 0.3 10^3/uL (0.0-0.5); EOS % 3.9 % (0.0-3.0); LYMPH % 23.9 % (24.0-44.0); MONO # 0.8 10^3/uL (0.0-0.8); NEUTROPHILS # 5.1 10^3/uL (1.5-8.5); NEUTROPHILS % 61.4 % (36.0-66.0)
[2020-06-24 13:20] LABS: ALBUMIN 3.4 GM/DL (3.2-5.2); ALT/SGPT 21 U/L (12-78); BILIRUBIN,TOTAL 0.5 MG/DL (0.2-1.0); BLOOD UREA NITROGEN 23 MG/DL (7-18); CALCIUM LEVEL 9.3 MG/DL (8.5-10.1); CARBON DIOXIDE LEVEL 28 MEQ/L (21-32); CHLORIDE LEVEL 106 MEQ/L (98-107); CHOLESTEROL LEVEL 106 MG/DL (<200); CHOLESTEROL RISK RATIO 3.785 (<5); CREATININE FOR GFR 1.27 MG/DL (0.70-1.30); GLOMERULAR FILTRATION RATE > 60.0 (>56); GLUCOSE, FASTING 108 MG/DL (70-100); HDL CHOLESTEROL 28 MG/DL (>40); LDL CHOLESTEROL 57 MG/DL (<100); NON-HDL-C 78 MG/DL; POTASSIUM SERUM 4.8 MEQ/L (3.5-5.1); SODIUM LEVEL 139 MEQ/L (136-145); TOTAL PROTEIN 6.8 GM/DL (6.4-8.2); TRIGLYCERIDES LEVEL 103 MG/DL (<150)
[2020-06-24 13:44] LABS: HEMOGLOBIN A1c 5.4 %
[2020-06-24 15:08] LABS: TOTAL 25(OH) VITAMIN D 14.8 NG/ML (30.0-100.0)
[2020-06-25 23:12] LABS: PSA TOTAL 0.5 ng/mL (0.0-4.0)
== END ==
LOC: M LAB REF 11:56
PROVIDERS: ATTEND Nurse Practitioner Family
DX: E66.9 Obesity, unspecified (principal); I10 Essential (primary) hypertension